=== PATIENT | female | born 1980 | race Caucasian/White ===

== ENCOUNTER 2018-09-01 09:07 | Inpatient (IN) | payer OTHER ==
[~2018-09-01] VITALS: Ht 162.6 cm; Wt 3.2 kg
[2018-09-01] MEDS ORDERED: PRENATABS RX T1 EACH PO (10:06)
[2018-09-03] MEDS ORDERED: PERCOCET 5-3251 EACH PO (09:31)
[2018-09-03] MEDS ORDERED: SURFAK240 M1 PO (09:31)
== END 2018-09-03 12:31 | disposition home or self-care (01) | DRG 788 ==
LOC: LDR 09:07 → SURG-SUITE 11:46
PROVIDERS: Specialist
PROC: 4A1HXCZ Monitoring of Products of Conception, Cardiac Rate, External Approach (ICD-10-PCS; 2018-09-01)
PROC: 4A033R1 Measurement of Arterial Saturation, Peripheral, Percutaneous Approach (ICD-10-PCS; 2018-09-01)
PROC: 10D00Z1 Extraction of Products of Conception, Low, Open Approach (ICD-10-PCS; principal; 2018-09-01 09:00)
DX: O34.211 Maternal care for low transverse scar from previous cesarean delivery (principal); O75.82 Onset (spontaneous) of labor after 37 completed weeks of gestation but before 39 completed weeks gestation, with delivery by (planned) cesarean section; Z3A.39 39 weeks gestation of pregnancy; Z37.0 Single live birth